=== PATIENT | male | born 1985 | race African-American/Black ===

== ENCOUNTER 2021-04-02 18:05 | Emergency (ER) | payer SELFPAY ==
[~2021-04-02] VITALS: Ht 172.7 cm; Wt 73.0 kg
[2021-04-02] MEDS ORDERED: IBUPROFEN 600MG TABLET PO STA (18:55)
[2021-04-02] MEDS ORDERED: IBUP-2029 MT (20:08)
[2021-04-02 20:15] VITALS: BP 155/76
== END 2021-04-02 20:16 | disposition home or self-care (01) ==
LOC: ER 18:05
DX: S09.8XXA Other specified injuries of head, initial encounter (principal); S70.02XA Contusion of left hip, initial encounter; V43.52XA Car driver injured in collision with other type car in traffic accident, initial encounter; Y93.9 Activity, unspecified; Y92.410 Unspecified street and highway as the place of occurrence of the external cause; Y99.9 Unspecified external cause status
CPT/HCPCS: 73502; 93005; 99285

== ENCOUNTER 2022-04-21 07:34 | Emergency (ER) | payer MEDICAID, OTHER ==
[~2022-04-21] VITALS: Ht 188 cm; Wt 89.0 kg
[~2022-04-21 07:34] MED LIST: IBUP-2029 MT
[2022-04-21 07:47] VITALS: BP 121/80
== END 2022-04-21 09:08 | disposition home or self-care (01) ==
LOC: ER 08:12
DX: Z48.02 Encounter for removal of sutures (principal); F12.10 Cannabis abuse, uncomplicated
CPT/HCPCS: 99281